=== PATIENT | male | born 1960 | race Two or more races ===

== ENCOUNTER 2025-05-09 17:22 | Emergency (ER) | payer MEDICAID ==
[~2025-05-09] VITALS: Ht 188 cm; Wt 99.0 kg
[2025-05-09 17:22] VITALS: O2SAT 98
[~2025-05-09 17:22] MED LIST: ATENOLOL
[2025-05-09 17:28] VITALS: BP 123/63; PULSE 63; RESP 14; TEMP 36.4; O2SAT 100
== END 2025-05-09 20:22 | disposition home or self-care (01) ==
LOC: ER 17:22
DX: Z45.2 Encounter for adjustment and management of vascular access device (principal); I10 Essential (primary) hypertension; E11.9 Type 2 diabetes mellitus without complications
CPT/HCPCS: 99282